=== PATIENT | female | born 1995 | race African-American/Black ===

== ENCOUNTER → 2017-02-16 | Outpatient (CLI) | payer MEDICAID ==
--- NOTE | 2017-02-17 10:47 | MRI ---
MRI OF THE THORACIC SPINE WITHOUT IV CONTRAST MRI OF THE LUMBAR SPINE WITHOUT IV CONTRAST CLINICAL INDICATION: Nontraumatic back pain TECHNIQUE: Pre-contrast sagittal T1-, T2-, and T2-w fat-saturated images, and axial T1- and T2-w imag es of the thoracic and lumbar spine. COMPARISON: None. FINDINGS: Thoracic spine: The thoracic spine demonstrates normal alignment. Vertebral bodies are normal in heig ht. There is a normal marrow signal pattern. Intervertebral discs are normal in height and signal int ensity. The included paraspinal soft tissues and retroperitoneal structures are grossly normal. Lumbar spine: For purposes of this dictation, it is assumed that there are 5 [id number], lumbar- type vertebrae, and the most caudal fully segmented lumbar vertebra is labeled L5. The lumbar spine demonstrates normal alignment. Vertebral bodies are normal in height. There is a nor mal marrow signal pattern. Intervertebral discs are normal in height and signal intensity. The conus medullaris terminates at a normal level and the nerve roots of the cauda equina appear normal. The in cluded paraspinal soft tissues and retroperitoneal structures are grossly normal. Evaluation of the individual levels demonstrates: L1-2: Normal L2-3: Normal L3-4: Normal L4-5: Normal L5-S1: Normal IMPRESSION: 1. Normal MRI of the thoracic and lumbar spine. Reported By:
== END ==
LOC: RAD 13:41
PROVIDERS: ATTEND Orthopaedic Surgery
DX: M54.5 Low back pain (principal)
CPT/HCPCS: 72146; 72148